=== PATIENT | female | born 1990 | race Caucasian/White ===

== ENCOUNTER 2020-08-30 11:21 | Emergency (ER) | payer OTHER, SELFPAY ==
[2020-08-30 11:22] VITALS: BP 152/77; PULSE 77; RESP 17; TEMP 36.6; O2SAT 99; BMI 22.8
--- NOTE | 2020-08-30 11:33 | HMH.EDLOEX ---
ED Disposition Clinical Impression: Metatarsal fracture Qualifiers: Encounter type: initial encounter Metatarsal bone: first Fracture type: closed Fracture alignment: nondisplaced Laterality: left Qualified Code(s): S92.315A - Nondisplaced fracture of first metatarsal bone, left foot, initial encounter for closed fracture Disposition: Xfer Other Condition on Discharge: Good Instructions: Ankle Fracture Additional Instructions: Please go straight to podiatry clinic as we discussed. You were seen on an emergency basis. It is very important that you follow up with your primary care provider and/or specialist as we discussed within 2 days. All labs and imaging were obtained and interpreted here to rule out life threatening emergencies, but your final results should be reviewed by your primary doctor at your follow up appointment. Please return to the emergency department if any of your symptoms worsen, or if they do not improve as we discussed. Referrals: Yrn Barton MD [Primary Care Provider] - - Critical Care Critical Care Time: No Attestation: On , the high probability of a clinically significant, sudden or life threatening deterioration of the following system(s) required my full and direct attention, intervention and personal management. The time I documented below is in addition to time spent performing reported procedures but includes the following listed in this critical care notation. Medical Decision Making - Medical Records Medical records reviewed: Yes: I reviewed the patient's medical records. - Nino Inquiry Pt receiving controlled substance: No Vital Signs: 08/30/20 11:22 Temperature 97.9 F Temperature Source Temporal Artery Scan Pulse Rate [Right] 77 Respiratory Rate 17 Blood Pressure [Right Arm] 152/77 H Blood Pressure Mean [Right Arm] 102 02 Sat by Pulse Oximetry 99 Orders (Tests/Meds): ORDERS Category Date Time Status Foot XR left minimum 3 views [XR foot LT min 3V] Stat Exams 08/30/20 11:38 Taken XR ankle LT 2V Stat Exams 08/30/20 11:38 Taken Medical Decision Narrative: 29-year-old female presenting with injury to left foot. Distal neurovascularly intact. X-rays obtained of the left foot and ankle demonstrating a closed first metatarsal fracture. I spoke with podiatry here who advised to have patient come straight to her clinic from the ED so I will discharge her from here and she will continue care in podiatry clinic. She is still declining pain medicine. Lower Extremity Injury HPI - General Chief Complaint: Extremity Injury, Lower Stated Complaint: wc @1100 L foot injury Time Seen by Provider: 08/30/20 11:24 Mode of Arrival: Ambulatory Limitations: No Limitations Description of Symptoms (Recalled from ER Triage Doc. by RN): Injury to the left foot at work, a piece of metal fell on her foot. - History of Present Illness HPI Narrative: 29-year-old female presenting with left foot injury whereby she dropped a piece of metal in the dorsal aspect of her foot which caused immediate localized pain and swelling. She remained ambulatory. She took some Tylenol prior to arrival and is declining any pain medicine here. No other injury sustained. - Related Data Allergies Allergy/AdvReac Type Severity Reaction Status Date / Time Penicillins [PENICILLINS] Allergy Unknown Unverified 10/23/17 14:48 Tetanus Vaccines and Toxoid Allergy Unknown Unverified 10/23/17 14:48 [TETANUS VACCINES & TOXOID] [facility] History - Hepatitis A Screen Drug use history?: No High risk sexual behaviors?: No History of sexually transmitted infection?: No Currently employed?: No Childcare worker?: No Do you have indoor plumbing?: Yes Do you have electricity?: Yes Attestation statement:: This patient has been screened for Hepatitis A risk factors. I have reviewed the patient's past medical history: Yes Amputation: No Fractures: No - Social History Smoking Status:
--- NOTE | 2020-08-30 11:38 | XR_ITS ---
PROCEDURE: XR ANKLE LT 2V CLINICAL INDICATION: dropped metal on foot Pain COMPARISON: No exams were available for comparison FINDINGS: IMPRESSION: No acute findings. Dictated by: Homer Jackson MD 08/30/2020 12:33 Homer Jackson MD in [place] 08/30/2020 12:33
--- NOTE | 2020-08-30 11:38 | XR_ITS ---
PROCEDURE: XR FOOT LT MIN 3V CLINICAL INDICATION: dropped metal on foot Posttraumatic pain COMPARISON: No exams were available for comparison FINDINGS: There are nondisplaced fractures involving the midshaft of the 1st 2nd 3rd and 4th metatarsals. There is overlying soft tissue swelling. IMPRESSION: Nondisplaced fractures midshaft 1st 2nd 3rd and 4th metatarsals Dictated by: Homer Jackson MD 08/30/2020 12:33 Homer Jackson MD in [place] 08/30/2020 12:33
--- NOTE | 2020-08-30 12:15 | PC.NURSE ---
Called dr harrell office for consult, stated she would call the dr young
--- NOTE | 2020-08-30 12:28 | PC.NURSE ---
speaking to dr harrell
[2020-08-30 12:38] VITALS: BP 118/78; PULSE 85; RESP 18; TEMP 36.6; O2SAT 99
== END 2020-08-30 12:39 | disposition other institution (70) ==
PROVIDERS: Emergency Provider Physician Assistant; PCP Family Medicine
DX: S92.315A Nondisplaced fracture of first metatarsal bone, left foot, initial encounter for closed fracture (principal); S92.325A Nondisplaced fracture of second metatarsal bone, left foot, initial encounter for closed fracture; S92.335A Nondisplaced fracture of third metatarsal bone, left foot, initial encounter for closed fracture; S92.345A Nondisplaced fracture of fourth metatarsal bone, left foot, initial encounter for closed fracture; W20.8XXA Other cause of strike by thrown, projected or falling object, initial encounter; Y92.69 Other specified industrial and construction area as the place of occurrence of the external cause; Y99.0 Civilian activity done for income or pay; F17.210 Nicotine dependence, cigarettes, uncomplicated; Z88.0 Allergy status to penicillin; Z88.7 Allergy status to serum and vaccine
CPT/HCPCS: 73600; 73630; 99282

== ENCOUNTER 2020-09-13 09:15 | Emergency (ER) | payer OTHER, SELFPAY ==
[2020-09-13 09:50] VITALS: BP 105/66; PULSE 69; RESP 16; TEMP 36.9; O2SAT 100; BMI 28.1
--- NOTE | 2020-09-13 10:33 | HMH.EDUTC ---
[facility] [place] Clinical Impression: Cellulitis Qualifiers: Site of cellulitis: extremity Site of cellulitis of extremity: lower extremity Laterality: left Qualified Code(s): L03.116 - Cellulitis of left lower limb Disposition: Home, Self-Care Condition on Discharge: Good Instructions: Minor Wounds (Alternative Therapy), Cellulitis, Clindamycin Additional Instructions: Keep wound area clean and dry Continue to elevate foot when sitting and continue to follow instructions as you was given per Dr Kohler Start antibiotics immediately Return if needed Straight to ER if any life threatening symptoms Prescriptions: clindamycin HCL [Clindamycin HCl 300mg Cap] 300 mg PO Q8 #30 cap Transmission Status: Received by [facility] #[id number] Referrals: Yrn Barton MD [Primary Care Provider] - Kandis Kohler DPM [Staff Physician] - As needed Forms: Work/School Release Time of Disposition: 10:37 Medical Decision Making - Nino Inquiry Pt receiving controlled substance: No Nino was queried for this patient: No Vital Signs: 09/13/20 09:50 09/13/20 10:57 Temperature 98.4 F 98.4 F Temperature Source Oral Pulse Rate 69 Pulse Rate [Right Brachial] 69 Respiratory Rate 16 16 Blood Pressure 105/66 L Blood Pressure [Right Arm] 105/66 L Blood Pressure Mean [Right Arm] 79 Blood Pressure Source [Right Arm] Automatic Cuff Blood Pressure Position [Right Arm] Sitting 02 Sat by Pulse Oximetry 100 Oxygen Delivery Method Room Air - Physician Consults Physician Consulted: Edita Time: 10:00 Reason -: Podiatry Eval/Care Comment/Response: Patient has been seeing Dr Kohler for fractures in her left foot, Discussed with Nereyda that foot was swollen red with drainaing blister on top of foot Spoke with Dr Kohler and advised to get culture and place patient on Clindamycin and have her keep her appointment as scheduled [facility] [place] HPI - General Stated complaint: possible left foot infection Time Seen by Provider: 09/13/20 10:00 Mode of Arrival: Ambulatory Source of Information: Patient Limitations: No Limitations Description of Symptoms (Recalled from Triage Doc. by RN): PATIENT REPORTS SHE FRACTURED HER LEFT FOOT APPROX 2 WEEKS AGO. SHE CAME IN SUNDAY TO HAVE HER DRESSING REMOVED, AND SINCE THEN A BLISTER FORMED ON TOP OF HER FOOT WHICH HAS SINCE BUSTED. REDNESS AND WARMTH NOTED TO TOP OF FOOT AND ANKLE. HEENT Symptoms (Recalled from RN notes): No Resp Symptoms (Recalled from RN notes): No Skin Symptoms (Recalled from RN notes): No MS Symptoms (Recalled from RN notes): Yes Functional Status (Recalled from RN notes): WNL - History of Present Illness Provider Complaint: Patient states that she has been under the care of Dr Kohler, States that she came in about a week ago and had wrap removed and shortly after she noticed she had a blister pop up on the top of her left foot States that she left it alone nad since she has started to have some redness and warm to the wound and she was worried that it may be infected so she come in - Related Data Previous Rx's Medication Instructions Recorded ibuprofen 800 mg tablet 800 mg PO BID #60 tab 08/30/20 clindamycin HCL [Clindamycin HCl 300 mg PO Q8 #30 cap 09/13/20 300mg Cap] Allergies Allergy/AdvReac Type Severity Reaction Status Date / Time Penicillins [PENICILLINS] Allergy Unknown Verified 08/30/20 12:58 Tetanus Vaccines and Toxoid Allergy Unknown Verified 08/30/20 12:58 [TETANUS VACCINES & TOXOID] amoxicillin Allergy Verified 09/13/20 10:12 - Worker's Comp Is this a Worker's Comp case?: No [facility] History - Hepatitis A Screen Drug use history?: No High risk sexual behaviors?: No History of sexually transmitted infection?: No Currently employed?: No Childcare worker?: No Do you have indoor plumbing?: Yes Do you have electricity?: Yes Attestation statement:: This patient has been screened for Hepatitis A risk factors. I have r
[2020-09-13 10:57] VITALS: BP 105/66; PULSE 69; RESP 16; TEMP 36.9; O2SAT 100
== END 2020-09-13 11:03 | disposition home or self-care (01) ==
PROVIDERS: Emergency Provider Nurse Practitioner; PCP Family Medicine
DX: L03.116 Cellulitis of left lower limb (principal); Z88.0 Allergy status to penicillin; Z88.7 Allergy status to serum and vaccine; S92.302D Fracture of unspecified metatarsal bone(s), left foot, subsequent encounter for fracture with routine healing
CPT/HCPCS: 99201

== ENCOUNTER → 2020-09-20 09:11 | Outpatient (CLI) | payer OTHER, SELFPAY ==
--- NOTE | 2020-09-20 09:19 | XR_ITS ---
PROCEDURE: XR FOOT WT BEARING LT 3V CLINICAL INDICATION: fracture follow up Follow-up fracture COMPARISON: CR XR FOOT LT MIN 3V from 08/30/2020 FINDINGS: Nondisplaced fractures of the 2nd 3rd and 4th midshaft metatarsals are present with minimal displacement the 1st metatarsal fracture midshaft. No significant callus formation evident IMPRESSION: No significant change in the 2nd 3rd and 4th metatarsal fractures. 1st metatarsal fracture slightly displaced with no significant callus formation. Dictated by: Homer Jackson MD 11/25/2020 15:57 Homer Jackson MD in [place] 11/25/2020 15:57
== END ==
PROVIDERS: PCP Family Medicine; Visit Provider Podiatrist
DX: S92.302D Fracture of unspecified metatarsal bone(s), left foot, subsequent encounter for fracture with routine healing (principal); T14.8XXA Other injury of unspecified body region, initial encounter
CPT/HCPCS: 73630

== ENCOUNTER → 2020-09-29 08:17 | Outpatient (CLI) | payer OTHER, SELFPAY ==
--- NOTE | 2020-09-29 08:18 | CT_ITS ---
PROCEDURE: CT FOOT LT WO CON CLINICAL HISTORY: fracture evaluation Posttraumatic pain COMPARISON: CR XR FOOT WT BEARING LT 3V from 09/20/2020 TECHNIQUE: Axial images obtained with sagittal and coronal reformats. All CT scans at the facility use one or more dose reduction, viz: automated exposure control, ma/kV adjustment per patient size (including targeted exams where dose is matched to indication, i.e. head), or iterative reconstruction technique. FINDINGS: There is a well-circumscribed lucency at the base of the posterior talar process along the lateral posterior aspect of the talus suggesting a nondisplaced fracture which appears chronic. This is best detected on series 601, image 37. There is a nondisplaced fracture involving the mid shaft of the 1st metatarsal as well as the mid shaft of the 2nd and 3rd and 4th metatarsals. There is normal relationship at the base of the 1st and 2nd metatarsals with no evidence of Lisfranc fracture. There is moderate overlying soft tissue swelling along the dorsal aspect of the foot and along the 5th metatarsal laterally. No bony erosive process evident. No obvious fluid collections although fluid collection evaluation is limited without IV contrast. IMPRESSION: 1. Nondisplaced fractures of the 1st 2nd 3rd and 4th metatarsals. 2. Well-circumscribed lucency is present through the base posterior talar process suggesting a nondisplaced fracture which appears chronic. An ununited ossification center is included in the differential diagnosis. 3. Cellulitis of the dorsal aspect of the foot Dictated by: Homer Jackson MD 10/01/2020 07:29 Homer Jackson MD in [place] 10/01/2020 07:29
== END ==
PROVIDERS: PCP Family Medicine; Visit Provider Podiatrist
DX: S92.302A Fracture of unspecified metatarsal bone(s), left foot, initial encounter for closed fracture (principal); S92.325A Nondisplaced fracture of second metatarsal bone, left foot, initial encounter for closed fracture; S92.335A Nondisplaced fracture of third metatarsal bone, left foot, initial encounter for closed fracture; S92.345A Nondisplaced fracture of fourth metatarsal bone, left foot, initial encounter for closed fracture
CPT/HCPCS: 73700

== ENCOUNTER → 2020-10-11 11:05 | Outpatient (CLI) | payer OTHER, SELFPAY ==
[2020-10-11 11:44] LABS: Chloride 100 mmol/L (98-107); Sodium 138 mmol/L (136-145)
[2020-10-11 11:45] LABS: Potassium 4.1 mmoL/L (3.5-5.1)
[2020-10-11 11:47] LABS: Alanine Aminotransferase 20 U/L (12-78); Alkaline Phosphatase 89 U/L (38-126); Aspartate Amino Transferase 26 U/L (14-36); Basophils # 0.1 K/mm3 (0-0.2); Basophils % 0.9 % (0.1-2.0); Bilirubin,Total 0.6 mg/dl (0.2-1.3); Blood Urea Nitrogen 7 mg/dl (7-17); Eosinophils # 0.1 K/mm3 (0.0-0.4); Eosinophils % 1.7 % (0.1-12.0); Estimated Glomerular Filt Rate 98 ml/min (>60); GFR (African American) 118 ML/MIN (>60); Hemoglobin 17.2 g/dL (12.2-16.2); Lymphocytes # 2.1 K/mm3 (0.7-4.5); Mean Corpuscular HGB Conc 33.1 g/dL (31.8-35.4); Mean Corpuscular Hemoglobin 31.9 pg (27.0-31.2); Mean Corpuscular Volume 96.3 fl (81-99); Mean Platelet Volume 7.9 fl (7.4-10.4); Monocytes # 0.3 K/mm3 (0.1-1.0); Monocytes % 3.9 % (1.7-9.3); Neutrophils # 5.6 K/mm3 (1.8-7.8); Neutrophils % 68.6 % (37.0-80.0); Platelet Count 349 K/mm3 (142-424); Red Cell Distribution Width 13.2 % (11.5-17.5); White Blood Count 8.2 K/mm3 (4.8-10.8)
[2020-10-11 11:48] LABS: Albumin Level 5.1 g/dl (3.5-5.0); Albumin/Globulin Ratio 1.5 (1.1-1.8); Anion Gap 12.1 mEq/L (5-15); Carbon Dioxide 30 mmol/L (22.0-30.0); Globulin 3.5 g/dL (1.3-3.2); Glucose 97 mg/dl (74-100); Total Protein,Serum 8.6 g/dl (6.3-8.2)
[2020-10-11 11:53] LABS: C-Reactive Protein 2.6 mg/L (0-4)
[2020-10-11 13:36] LABS: Erythrocyte Sedimentation Rate 20 mm/hr (0-20)
[2020-10-20 06:05] LABS: 1,25 Dihydroxy Vitamin D 49 pg/mL (.); 1,25-Dihydroxy, Vitamin D-2 <10 pg/mL (.); 1,25-Dihydroxy, Vitamin D-3 44 pg/mL (.)
== END ==
PROVIDERS: Visit Provider Podiatrist
DX: S90.822A Blister (nonthermal), left foot, initial encounter (principal); L03.116 Cellulitis of left lower limb; L08.9 Local infection of the skin and subcutaneous tissue, unspecified; S99.922D Unspecified injury of left foot, subsequent encounter
CPT/HCPCS: 36415; 80053; 82652; 85025; 85651; 86140

== ENCOUNTER → 2020-11-08 10:55 | Outpatient (CLI) | payer OTHER, SELFPAY ==
--- NOTE | 2020-11-08 11:13 | XR_ITS ---
PROCEDURE: XR FOOT WT BEARING LT 3V CLINICAL INDICATION: Fracture follow up Follow-up fracture COMPARISON: CR XR FOOT LT MIN 3V from 08/30/2020 CR XR FOOT WT BEARING LT 3V from 09/20/2020 FINDINGS: Nondisplaced fractures are once again noted involving the 1st 2nd 3rd and 4th mid shaft metatarsals. Callus formation is present at the 2nd 3rd and 4th metatarsal fracture but not noted at the 1st metatarsal fracture. There remains good alignment. IMPRESSION: Nondisplaced 1st 2nd 3rd and 4th metatarsal fractures as described above. Dictated by: Homer Jackson MD 11/08/2020 11:43 Homer Jackson MD in [facility] 11/08/2020 11:43
== END ==
PROVIDERS: PCP Family Medicine; Visit Provider Podiatrist
DX: T14.8XXA Other injury of unspecified body region, initial encounter (principal)
CPT/HCPCS: 73630

== ENCOUNTER 2020-12-09 09:00 | Outpatient (RCR) | payer OTHER, SELFPAY ==
--- NOTE | 2020-11-16 10:42 | HMH.PTOPEV ---
PT Outpatient Evaluation Rehab PT Outpatient Evaluation Start: 11/16/20 10:27 Freq: Status: Active Protocol: Document 11/16/20 10:27 MORGAN (Rec: 11/16/20 10:42 MORGAN [id number]) Electronically Signed By Jeremie Lees, PT 11/16/20 10:27 Outpatient Therapy Subjective History Subjective History Patient is a 29 year old female presenting to outpatient PT with reports of L foot/ankle stiffness S/P L 1st/2nd/3rd/4th metatarsal fracture. Initial injury occurred 08/30/20 (12 weeks S/ P). Initial injury occurred after patient dropped a piece of sheet metal on her foot at work. This is a workmans comp case. No other comorbidities to report. Chief Complaint Stiff,Swelling,Weakness Symptom Type Other Symptoms Relieved By Rest/Positioning Symptoms Aggravated By Standing,Physical Activity, Walking Prior Functional Limitations None Current Functional Limitations Standing,Walking,Stairs Symptom Description Intermittent Level of pain today (0-10) 0 Pain scale - at its best (0-10) 0 Pain scale - at its worst (0-10) 3 Ankle/Foot Eval Gait Observation General Gait Pattern Observation Antalgic Gait,Decrease Weight Bear (L) Palpation Tenderness left Ankle/Foot Palpation Findings Tenderness Ankle/Foot Palpation Overall Comment 1st MT 2/4 ROM Ankle/Foot Dorsiflexion w/Knee Extended 4 Active Range Motion (degrees) Ankle/Foot Dorsiflexion w/Knee Extended 7 Passive Range (degrees) Ankle/Foot Plantar Flexion Active Range 48 of Motion (degrees) Ankle/Foot Plantar Flexion Passive Range 52 of Motion (degrees) Ankle/Foot Eversion Active Range of 9 Motion (degrees) Ankle/Foot Eversion Passive Range of 12 Motion (degrees) Ankle/Foot Inversion Active Range of 33 Motion (degrees) Ankle/Foot Inversion Passive Range of WNL Motion (degrees) Great Toe ROM Reason Not Measured Within Functional Limits Accessory Movements Toe Accessory Movement that Elicit MTP Dorsal [place],MTP Plantar Symptoms [place] MMT left Ankle Dorsiflexion Strength Grade 5 Normal Ankle Plantarflexion Strength Grade 5 Normal Foot Eversion Strength Grade 4- Good- Foot Inversion Strength Grade 4- Good- Special Tests Ankle Anterior Drawer Test Negative Left Ankle Eversion Test Negative Left
== END 2020-12-09 09:05 | disposition home or self-care (01) ==
LOC: PT 09:00
PROVIDERS: Visit Provider Podiatrist
DX: S92.302A Fracture of unspecified metatarsal bone(s), left foot, initial encounter for closed fracture (principal); S92.325A Nondisplaced fracture of second metatarsal bone, left foot, initial encounter for closed fracture; S92.335A Nondisplaced fracture of third metatarsal bone, left foot, initial encounter for closed fracture; S92.345A Nondisplaced fracture of fourth metatarsal bone, left foot, initial encounter for closed fracture
CPT/HCPCS: 97110; 97112; 97163; 97760

== ENCOUNTER → 2020-12-13 09:46 | Outpatient (CLI) | payer OTHER, SELFPAY ==
--- NOTE | 2020-12-13 09:56 | XR_ITS ---
PROCEDURE: XR FOOT WT BEARING LT 3V CLINICAL INDICATION: fracture follow up Follow-up fracture COMPARISON: CR XR FOOT LT MIN 3V from 08/30/2020 CR XR FOOT WT BEARING LT 3V from 09/20/2020 CR XR FOOT WT BEARING LT 3V from 11/08/2020 FINDINGS: There are healing fractures involving the midshaft of the 1st 2nd 3rd and 4th metatarsals. The fracture lines are somewhat less apparent at the 2nd 3rd and 4th metatarsals but does not appear significantly changed at the midshaft of the 1st metatarsal. There may be some developing callus formation laterally at the 1st metatarsal fracture. Fractures remain nondisplaced. IMPRESSION: Healing nondisplaced fractures 1st 2nd 3rd and 4th metatarsals with good alignment Dictated by: Homer Jackson MD 12/13/2020 11:11 Homer Jackson MD in [place] 12/13/2020 11:11
== END ==
PROVIDERS: PCP Family Medicine; Visit Provider Podiatrist
DX: S92.325A Nondisplaced fracture of second metatarsal bone, left foot, initial encounter for closed fracture (principal); S92.335A Nondisplaced fracture of third metatarsal bone, left foot, initial encounter for closed fracture; S92.345A Nondisplaced fracture of fourth metatarsal bone, left foot, initial encounter for closed fracture
CPT/HCPCS: 73630

== ENCOUNTER → 2021-01-24 10:42 | Outpatient (CLI) | payer OTHER, SELFPAY ==
--- NOTE | 2021-01-24 10:51 | XR_ITS ---
PROCEDURE: XR FOOT WT BEARING LT 3V CLINICAL INDICATION: foot pain Follow-up fracture COMPARISON: CR XR FOOT LT MIN 3V from 08/30/2020 CR XR FOOT WT BEARING LT 3V from 09/20/2020 CR XR FOOT WT BEARING LT 3V from 11/08/2020 CR XR FOOT WT BEARING LT 3V from 12/13/2020 FINDINGS: Healing fractures are present involving the midshaft of the 1st 2nd 3rd and 4th metatarsals. There is good alignment. Fracture lines are still visible although somewhat less apparent. The joint spaces are well-preserved. No significant degenerative/arthritic changes. No erosive changes evident. Other findings:None. IMPRESSION: Healing nondisplaced fractures of the 1st, 2nd, 3rd and 4th metatarsals Dictated by: Homer Jackson MD 01/24/2021 13:51 Homer Jackson MD in [facility] 01/24/2021 13:51
== END ==
PROVIDERS: PCP Family Medicine; Visit Provider Podiatrist
DX: S92.302D Fracture of unspecified metatarsal bone(s), left foot, subsequent encounter for fracture with routine healing (principal); T14.8XXA Other injury of unspecified body region, initial encounter
CPT/HCPCS: 73630

== ENCOUNTER → 2021-05-30 13:27 | Outpatient (CLI) | payer OTHER, SELFPAY ==
--- NOTE | 2021-05-30 13:30 | XR_ITS ---
PROCEDURE INFORMATION: Exam: XR Left Foot Complete; Alignment Exam date and time: 05/30/2021 1:30 PM Age: 30 years old Clinical indication: Patient HX: Left foot pain TECHNIQUE: Imaging protocol: XR Left foot. Views: 3 or more views. COMPARISON: CR XR FOOT WT BEARING LT 3V 01/24/2021 10:52 AM FINDINGS: Bones/joints: Healed fractures of the 1st through 4th metatarsals. No acute fracture or dislocation. No significant degenerative changes. Soft tissues: Normal. IMPRESSION: Multiple healed metatarsal fractures.
== END ==
PROVIDERS: PCP Family Medicine; Visit Provider Podiatrist
DX: T14.8XXA Other injury of unspecified body region, initial encounter (principal); S92.302D Fracture of unspecified metatarsal bone(s), left foot, subsequent encounter for fracture with routine healing
CPT/HCPCS: 73630

== ENCOUNTER 2021-06-07 10:10 | Emergency (ER) | payer OTHER, SELFPAY ==
[2021-06-07 10:11] VITALS: BP 128/84; PULSE 64; RESP 20; TEMP 36.9; O2SAT 99; BMI 29.9
[2021-06-07 11:03] LABS: UTC Strep Screen (Rapid) Negative (Negative)
--- NOTE | 2021-06-07 11:06 | HMH.EDUTC ---
[facility] [place] Disposition Clinical Impression: URI (upper respiratory infection) Qualifiers: URI type: unspecified URI Qualified Code(s): J06.9 - Acute upper respiratory infection, unspecified Disposition: Home, Self-Care Condition on Discharge: Good Instructions: Sore Throat, DI for Cough -- Adult Additional Instructions: *Monitor Temp, Over the counter Motrin or Tylenol as directed/as needed Tylenol every 4 hours and Motrin every 6 hours (as long as your family doctor has told you that you can take it) for fever or pain. and straight to ER if unable to lower temp less than 101.0 after medication given *Warm salt water gargles may help to soothe the throat *Throat Lozenges *Warm fluids like tea with honey may help to soothe the throat *Sleep elevated *Humidifier/Vaporizer *Flonase 2 sprays in each nostril daily but be aware that it may take 2-3 days before you notice improvement Your throat swab was sent for culture. Those results are typically sent to your primary care. Be sure to follow up in 2-3 days with your family doctor/primary care physician if no improvement so they can review those result and treat if necessary. If you don?t have a primary care doctor, I recommend you get one but in the mean time, you will have to return to a walk in clinic Follow up IMMEDIATELY for new or worsening symptoms or no Noticeable improvement over the next 48-72 hours. 911 for difficulty breathing or swallowing Prescriptions: Azithromycin [Z-Real 250mg Tab] 250 mg PO DIRECTED #6 tab Transmission Status: Pending to No [facility] #[id number] Referrals: Yrn Barton MD [Primary Care Provider] - As needed Forms: Work/School Release Time of Disposition: 11:10 Medical Decision Making - Nino Inquiry Pt receiving controlled substance: No Nino was queried for this patient: No Vital Signs: 06/07/21 10:11 Temperature 98.5 F Temperature Source Oral Pulse Rate [Apical] 64 Respiratory Rate 20 Blood Pressure [Right Arm] 128/84 Blood Pressure Mean [Right Arm] 98 Blood Pressure Source [Right Arm] Automatic Cuff Blood Pressure Position [Right Arm] Sitting 02 Sat by Pulse Oximetry 99 Oxygen Delivery Method Room Air - Lab Data Lab results reviewed: Yes: I reviewed the patient's lab results. Lab Results 06/07/21 10:55: Strep Scn Rapid Clinic Negative Orders (Tests/Meds): ORDERS Category Date Time Status Strep Screen Confirmation Stat Micro 06/07/21 10:55 Received [facility] [place] HPI - General Stated complaint: sore throat, cough Time Seen by Provider: 06/07/21 11:06 Mode of Arrival: Ambulatory Source of Information: Patient Limitations: No Limitations Description of Symptoms (Recalled from Triage Doc. by RN): 128/84 HEENT Symptoms (Recalled from RN notes): Yes Resp Symptoms (Recalled from RN notes): No Skin Symptoms (Recalled from RN notes): No MS Symptoms (Recalled from RN notes): No Functional Status (Recalled from RN notes): na - History of Present Illness Provider Complaint: Patient state that she has been having sore throat and cough States that her daughter has strep throat and she feels like she may have it now too State that her throat feels raw and scratchy and hurts when she swallows - Related Data Previous Rx's Medication Instructions Recorded Azithromycin [Z-Real 250mg Tab] 250 mg PO DIRECTED #6 tab 06/07/21 Allergies Allergy/AdvReac Type Severity Reaction Status Date / Time Penicillins [PENICILLINS] Allergy Unknown Verified 05/30/21 14:05 Tetanus Vaccines and Toxoid Allergy Unknown Verified 05/30/21 14:05 [TETANUS VACCINES & TOXOID] amoxicillin Allergy Verified 05/30/21 14:05 - Worker's Comp Is this a Worker's Comp case?: No [facility] History - Hepatitis A Screen Drug use history?: No High risk sexual behaviors?: No History of sexually transmitted infection?: No Currently employed?: No Childcare worker?: No Do you have indoor plumbing?: Yes Do you have
[2021-06-07 11:16] VITALS: BP 128/84; PULSE 64; RESP 20; TEMP 36.9; O2SAT 99
== END 2021-06-07 11:17 | disposition home or self-care (01) ==
PROVIDERS: Emergency Provider Nurse Practitioner; PCP Family Medicine
DX: J06.9 Acute upper respiratory infection, unspecified (principal); R01.1 Cardiac murmur, unspecified; Z88.0 Allergy status to penicillin; Z88.7 Allergy status to serum and vaccine
CPT/HCPCS: 87880; 99202; G0463

== ENCOUNTER → 2021-07-21 10:29 | Outpatient (CLI) | payer OTHER, SELFPAY ==
[2021-07-21 11:38] LABS: HCG,Quantitative 13507 mIU/ml (0-5.42)
== END ==
PROVIDERS: Visit Provider Nurse Practitioner Obstetrics & Gynecology
DX: N92.6 Irregular menstruation, unspecified (principal)
CPT/HCPCS: 36415; 84702

== ENCOUNTER → 2021-08-18 11:54 | Outpatient (CLI) | payer OTHER, SELFPAY ==
[2021-08-18 12:28] LABS: Basophils # 0.1 K/mm3 (0-0.2); Basophils % 0.5 % (0.1-2.0); Eosinophils # 0.1 K/mm3 (0.0-0.4); Eosinophils % 0.8 % (0.1-12.0); Hematocrit 38.7 % (37.0-47.0); Hemoglobin 12.7 g/dL (12.2-16.2); Lymphocytes # 2.1 K/mm3 (0.7-4.5); Lymphocytes % 21.7 % (10-50); Mean Corpuscular HGB Conc 32.8 g/dL (31.8-35.4); Mean Corpuscular Hemoglobin 31.2 pg (27.0-31.2); Mean Corpuscular Volume 94.9 fl (81-99); Monocytes # 0.4 K/mm3 (0.1-1.0); Monocytes % 3.8 % (1.7-9.3); Neutrophils % 73.3 % (37.0-80.0); Platelet Count 342 K/mm3 (142-424); Red Blood Count 4.08 M/mm3 (4.20-5.40); White Blood Count 9.6 K/mm3 (4.8-10.8)
[2021-08-19 08:19] LABS: HIV Screen 4th Generation wRfx Non Reactive (Non Reactive)
[2021-08-19 09:29] LABS: Rubella Antibodies, IgG 2.78 index (Immune >0.99)
[2021-08-19 11:15] LABS: Hepatitis B Surface Antigen Negative (Negative); Hepatitis C Antibody 0.1 s/co ratio (0.0-0.9); Rapid Plasma Reagin Ab Titer Non Reactive (NonRea<1:1)
== END ==
PROVIDERS: Visit Provider Nurse Practitioner Obstetrics & Gynecology
DX: Z34.90 Encounter for supervision of normal pregnancy, unspecified, unspecified trimester (principal)
CPT/HCPCS: 36415; 85025; 86592; 86703; 86762; 86850; 87340; 87380; G0432

== ENCOUNTER → 2021-08-26 13:13 | Outpatient (CLI) | payer OTHER, SELFPAY ==
--- NOTE | 2021-08-26 13:14 | US_ITS ---
PROCEDURE: US OB <= 14 WEEKS FETUS CLINICAL INDICATION: for dates COMPARISON: No exams were available for comparison FINDINGS: An intrauterine gestational sac is present with a pole with a crown-rump length of 4.32cm correlating to gestational age of 11weeks 2days. heart tones are present with an FHR of 167bpm. Yolk sac is noted. Placenta is forming posteriorly. IMPRESSION: Live IUP at 11 weeks 2 days Estimated due date by Ultrasound is 03/15/2022 Dictated by: Homer Jackson MD 08/26/2021 14:58 Homer Jackson MD in [facility] 08/26/2021 14:58
== END ==
PROVIDERS: PCP Family Medicine; Visit Provider Nurse Practitioner Obstetrics & Gynecology
DX: Z34.90 Encounter for supervision of normal pregnancy, unspecified, unspecified trimester (principal)
CPT/HCPCS: 76801

== ENCOUNTER → 2021-10-25 14:54 | Outpatient (CLI) | payer OTHER, SELFPAY ==
--- NOTE | 2021-10-25 14:54 | US_ITS ---
PROCEDURE: US OB /MATERNAL DETAIL CLINICAL INDICATION: 20 weeks gestation COMPARISON: US US OB <= 14 WEEKS FETUS from 08/26/2021 FINDINGS: There is a single live fetus present in breech presentation. The cervix is closed measuring 3 cm. The placenta is posterior and grade 1. No previa or abruption demonstrated. Complete survey performed and was unremarkable on the submitted images as in PACS. No discrete anomalies identified on survey imaging by technologist. Active fetus. Three-vessel cord with satisfactory umbilical cord insertion. 4- chamber heart noted. Survey of brain & ventricles Unremarkable. Face and neck survey unremarkable. Diaphragm and chest views unremarkable. Abdomen: Both kidneys noted and unremarkable. Stomach noted and satisfactory. Spine: Survey of the spine satisfactory with no anomalies identified nor imaged. Both arms and legs noted. Amniotic Fluid: Adequate. Maternal adnexa: No significant findings. Measurements: Average ultrasound age 20weeks. Gestational Age 20weeks Estimated due date by ultrasound age 0503/14/2022. Estimated weight 330g BPD = 20weeks OFD = 19weeks 4days HC = 19weeks AC = 20weeks 3days FL = 20weeks 1day Growth Percentile= 33% Heart Rate = 150bpm Cerebellum = 20weeks 1day Humerus = 20weeks HC/AC is 1.07 CI is 0.81 FL/BPD is 0.7 FL/AC is 0.21 IMPRESSION: Live IUP in breech presentation with an average ultrasound age of 20 weeks 0 days. No obvious anomalies. Please see above for detail. Dictated by: Homer Jackson MD 10/25/2021 17:51 Homer Jackson MD in [facility] 10/25/2021 17:51
== END ==
PROVIDERS: PCP Family Medicine; Visit Provider Nurse Practitioner Obstetrics & Gynecology
DX: Z36.0 Encounter for antenatal screening for chromosomal anomalies (principal); Z3A.20 20 weeks gestation of pregnancy
CPT/HCPCS: 76811

== ENCOUNTER → 2021-12-23 06:57 | Outpatient (CLI) | payer BC, SELFPAY ==
[2021-12-23 07:36] LABS: Glucose,Fasting 82 mg/dl (74-100)
[2021-12-23 08:56] LABS: Glucose 1 Hour 127 mg/dL (74-100)
== END ==
PROVIDERS: Visit Provider Nurse Practitioner Obstetrics & Gynecology
DX: Z34.90 Encounter for supervision of normal pregnancy, unspecified, unspecified trimester (principal)
CPT/HCPCS: 36415; 82951

== ENCOUNTER → 2022-01-25 10:00 | Outpatient (CLI) | payer BC, SELFPAY ==
--- NOTE | 2022-01-25 10:13 | US_ITS ---
FINAL REPORT CLINICAL HISTORY: US OB BPP and Growth for SGA,measuring small FINDINGS: There is a single live intrauterine gestation. Presentation is cephalic. Placenta is posterior. movements and practice breathing is seen. Heart rate is 142 beats per minute. AMNIOTIC FLUID: Appropriate amount. MEASUREMENTS: ULTRASOUND AGE: 32 weeks 2 days. GESTATION AGE: 33 weeks 0 days. ESTIMATED WEIGHT: 1877 g GROWTH PERCENTILE: 15% BPD: 8.2 cm corresponding with 33 weeks 0 days. OFD: 10.5 cm corresponding with 33 weeks 2 days. HC: 29.6 cm corresponding with 32 weeks 6 days. AC: 28.5 cm corresponding with 32 weeks 4 days. FL: 5.9 cm corresponding with 30 weeks 4 days. HC/AC: 1.04 CI: 78% FL/BPD: 72% FL/AC: 21% BIOPHYSICAL PROFILE: Breathin Movement: 2 Tone: 2 Fluid volume: 2 Total: 06/12 IMPRESSION: Single living IUP with an ultrasound age of 32 weeks 2 days. BPP: 06/12 Reviewed, Interpreted and Dictated by Bonifacio Nelson MD Transcribed by Tonie Stubbs Authenticated by Bonifacio Nelson MD on 01/25/2022 02:03:54 PM [facility]
== END ==
PROVIDERS: PCP Family Medicine; Visit Provider Nurse Practitioner Obstetrics & Gynecology
DX: O36.5990 Maternal care for other known or suspected poor fetal growth, unspecified trimester, not applicable or unspecified (principal)
CPT/HCPCS: 76816; 76819

== ENCOUNTER → 2022-02-20 13:01 | Outpatient (CLI) | payer BC, SELFPAY | PROVIDERS: Visit Provider Nurse Practitioner Obstetrics & Gynecology | DX: Z34.90 Encounter for supervision of normal pregnancy, unspecified, unspecified trimester (principal) | CPT/HCPCS: 86403 ==

== ENCOUNTER 2022-03-13 15:56 | Inpatient (IN) | payer BC, SELFPAY ==
[2022-03-13 16:09] VITALS: BMI 32.1
[2022-03-13 16:30] VITALS: BP 115/58; PULSE 62; RESP 18; TEMP 36.8; O2SAT 95; BMI 31.9
[2022-03-13 16:54] LABS: Microscopic, Urine URINE MICROSCOPIC (MICROSCOPIC)
[2022-03-13 16:58] LABS: Coronavirus 19, PCR Not Detected (NotDetected); Influenza A, PCR Not Detected (NotDetected); Influenza B, PCR Not Detected (NotDetected)
[2022-03-13 17:06] LABS: Basophils # 0.1 K/mm3 (0-0.2); Basophils % 0.4 % (0.1-2.0); Eosinophils % 0.1 % (0.1-12.0); Hematocrit 34.3 % (37.0-47.0); Hemoglobin 11.7 g/dL (12.2-16.2); Lymphocytes # 1.6 K/mm3 (0.7-4.5); Lymphocytes % 10.5 % (10-50); Mean Corpuscular HGB Conc 34.2 g/dL (31.8-35.4); Mean Corpuscular Hemoglobin 32.3 pg (27.0-31.2); Mean Corpuscular Volume 94.3 fl (81-99); Mean Platelet Volume 8.9 fl (7.4-10.4); Monocytes # 0.5 K/mm3 (0.1-1.0); Monocytes % 3.3 % (1.7-9.3); Neutrophils # 13.4 K/mm3 (1.8-7.8); Neutrophils % 85.7 % (37.0-80.0); Platelet Count 349 K/mm3 (142-424); Red Blood Count 3.63 M/mm3 (4.20-5.40); White Blood Count 15.7 K/mm3 (4.8-10.8)
[2022-03-13 17:07] LABS: Appearance,Urine CLEAR (Clear); Bilirubin,Urine Negative (Negative); Blood, Urine Negative (Negative); Color,Urine YELLOW (Yellow); Glucose,Urine (UA) Negative (Negative); Ketones,Urine 1+ (Negative); Leukocyte Esterase,Urine Negative (Negative); Nitrate,Urine Negative (Negative); PH,Urine 6.5 (5.0-8.5); Protein,Urine Negative (Negative); Urobilinogen,Urine 0.2 EU/dl (0.2)
[2022-03-13 17:08] LABS: MANUAL DIFFERENTIAL MANUAL DIFFERENTIAL (MANUAL DIFF)
[2022-03-13 17:09] LABS: Barbiturates Screen,Urine Negative ng/ml (<200)
[2022-03-13 17:10] LABS: Benzodiazepines Screen,Urine Negative ng/ml (<200)
[2022-03-13 17:11] LABS: Amphetamine/Metha Screen,Urine Negative ng/ml (<1000); Cannabinoid Screen,Urine Negative ng/ml (<50)
[2022-03-13 17:12] LABS: Cocaine Screen,Urine Negative ng/ml (<300); Methadone Screen,Urine Negative ng/ml (<300)
[2022-03-13 17:13] LABS: Opiate Screen,Urine Negative ng/ml (<300)
[2022-03-13 17:14] LABS: Phencyclidine Screen,Urine Negative ng/ml (<25)
[2022-03-13 17:19] LABS: Hypochromasia 1+; Lymphocytes % 15 % (10-50); Monocytes % 5 % (2-9); Neutrophils % 80 % (42-76); Platelet Estimate Normal; Total Cells Counted 100
[2022-03-13 17:36] LABS: Bacteria,Urine Trace /lpf; Squamous Epithelial Cell,Urine Occasional #/hpf (0-5)
--- NOTE | 2022-03-13 18:01 | HMH.OBAPHP ---
OB - H&P: HPI Antepartum - History of Present Illness Chief complaint: Term , oligohydramnios History of present illness: She is a 31-year-old 2 para 1 at 40 weeks and 1 day. She was seen in my office earlier today and an ultrasound showed that her amniotic fluid index was 4.69. As result of this she is being induced this evening. - History of Present Criteria for establishing EDC:: LMP confirmed by 1st trimester US care: good care Ultrasounds: normal 1st trimester US, normal mid trimester US Obstetrical complications: other Medical complications: none (To know what her blood type is) - Labs Blood type: O (+) positive (an 77 yeah) Rubella: immune RPR/VDRL: nonreactive GBS status: positive (and she is GBS positive right) HBsAG: negative [facility] History I have reviewed the patient's past medical history: Yes (Thank you) Medical History: Reports:: Heart Murmur *Have you ever received a pneumonia vaccine?: No *Have you received a flu vaccine this season?: No Other Surgeries: Yes: No Previous Surgery. No: Amputation: No Fractures: No - *Social History Smoking Status: Current every day smoker Tobacco Type: cigarettes # Packs/Day (cigarettes): 1 Alcohol Intake: current Alcohol Intake Frequency:: holidays/special occasions only Substance Use Type: denies use *Occupational Status:: employed *Travel in the last 8 weeks: None Family Hx:: Cancer Para: 1 Review of Systems - Review of Systems Review of systems:: pertinent systems reviewed and negative unless documented below Meds Home Medications Medication Instructions Recorded Confirmed Type prenat.vits,inocente,szs-[id number]-[id number] 1 tab PO DAILY 08/18/21 03/13/22 History ferrous sulfate 325 mg (65 mg 325 mg PO DAILY #30 tab 10/12/21 03/13/22 Rx iron) tablet Allergies Allergy/AdvReac Type Severity Reaction Status Date / Time Penicillins [PENICILLINS] Allergy Unknown Verified 03/13/22 10:05 Tetanus Vaccines and Toxoid Allergy Unknown Verified 03/13/22 10:05 [TETANUS VACCINES & TOXOID] amoxicillin Allergy Verified 03/13/22 10:05 OB - H&P: Exam - Physical Exam Vital signs: Temp Pulse Resp BP Pulse Ox 98.2 F 62 18 115/58 L 95 03/13/22 16:30 05/09/22 16:30 03/13/22 16:30 03/13/22 16:30 03/13/22 16:30 - Constitutional no acute distress - Routine HEENT Exam Head: Present: normocephalic Eye: Present: EOMI, PERRL ENT: Present: mucous membranes moist - Routine Neck Exam Present: supple, full ROM - Routine Respiratory Exam Absent: accessory muscle use (good air entry bilaterally), respiratory distress, wheezes, crackles - Routine Cardiovascular Exam Present: RRR. Absent: murmur - Routine Abdominal Exam Present: soft, normoactive bowel sounds. Absent: tenderness, distended, guarding - Routine Rectal Exam Patient deferred: visual exam, digital exam - Routine Exam Patient deferred: external exam, groin exam, perineal exam - Routine Extremities Exam Present: full ROM. Absent: cyanosis, edema - Routine Skin Exam Present: intact. Absent: cyanosis - Routine Neurological Exam Present: alert, oriented X3 - Routine Psychiatric Exam Present: normal affect OB - Results - Labs Labs: Short CBC 03/13/22 Range/Units 16:30 WBC 15.7 H (4.8-10.8) K/mm3 Hgb 11.7 L (12.2-16.2) g/dL Hct 34.3 L (37.0-47.0) % Plt Count 349 (142-424) K/mm3 Urine 03/13/22 Range/Units 16:30 Urine Color Yellow (Yellow) Urine Appearance Clear (Clear) Urine pH 6.5 (5.0-8.5) Ur Specific [place] 1.020 (1.005-1.030) Urine Protein Negative (Negative) Urine Glucose (UA) Negative (Negative) OB - A/P Antepartum (1) Term delivered Status: Acute (2) Oligohydramnios antepartum Status: Acute - Additional Plan Planning to breastfeed?: Yes Plan: induction Additional Information:: I inserted Cervidil in the vagin
[2022-03-13 20:00] VITALS: BP 114/61; PULSE 54; RESP 18; TEMP 36.6; O2SAT 97
[2022-03-14 04:00] VITALS: BP 115/71; PULSE 58; RESP 18; TEMP 36.6; O2SAT 98
[2022-03-14 07:30] VITALS: BP 115/67; PULSE 49; RESP 17; TEMP 36.9; O2SAT 99
--- NOTE | 2022-03-14 10:19 | HMH.LABNOT ---
Labor Note - Subjective: Date: 03/14/22 Time: 09:00 regular contraction - Objective: NST:: Reactive Contractions:: every 2-3 minutes Cervical Dilation:: 2 Effacement:: 75% Station: 0 Membranes: artificially ruptured Comment:: I ruptured her membranes and there was clear fluid - Fetus: Monitoring?: Yes monitoring type:: External - Assessment: Labor progressing?: Yes Cephalopelvic disproportion?: No Patient Problems: All Active Problems Term delivered (Acute) Oligohydramnios antepartum (Acute) (Acute) Cellulitis (Acute) URI (upper respiratory infection) (Acute) Metatarsal fracture (Acute) Closed nondisplaced fracture of fourth metatarsal bone of left foot (Acute) Closed nondisplaced fracture of third metatarsal bone of left foot (Acute) Closed nondisplaced fracture of second metatarsal bone of left foot (Acute) Multiple closed fractures of metatarsal bone of left foot (Acute) Injury of left foot (Acute) Influenza due to influenza virus, type B (Acute) Fever (Acute) Body aches (Acute) Cough (Acute) Sinusitis (Acute) - Plan: Anesthesia for epidural?: No Continue to labor down?: Yes Plan for ?: No Continue to monitor?: Yes Start pushing?: No Comment:: She is having regular contractions and the nonstress test is reactive. I ruptured her membranes and there was clear fluid.
[2022-03-14 11:08] VITALS: BP 122/80; PULSE 57; RESP 17; TEMP 36.7; O2SAT 99
--- NOTE | 2022-03-14 12:33 | HMH.LABNOT ---
Labor Note - Subjective: Date: 03/14/22 Time: 12:33 regular contraction - Objective: NST:: Reactive Contractions:: every 2-3 minutes Cervical Dilation:: 3-4 Effacement:: 80% Station: 0 Membranes: artificially ruptured - Fetus: Monitoring?: Yes monitoring type:: External - Assessment: Labor progressing?: Yes Cephalopelvic disproportion?: No Patient Problems: All Active Problems Term delivered (Acute) Oligohydramnios antepartum (Acute) (Acute) Cellulitis (Acute) URI (upper respiratory infection) (Acute) Metatarsal fracture (Acute) Closed nondisplaced fracture of fourth metatarsal bone of left foot (Acute) Closed nondisplaced fracture of third metatarsal bone of left foot (Acute) Closed nondisplaced fracture of second metatarsal bone of left foot (Acute) Multiple closed fractures of metatarsal bone of left foot (Acute) Injury of left foot (Acute) Influenza due to influenza virus, type B (Acute) Fever (Acute) Body aches (Acute) Cough (Acute) Sinusitis (Acute) - Plan: Anesthesia for epidural?: No Continue to labor down?: Yes Plan for ?: No Continue to monitor?: Yes Start pushing?: No
[2022-03-14 15:41] VITALS: BP 127/80; PULSE 57; RESP 17; TEMP 36.8; O2SAT 99
[2022-03-14 20:00] VITALS: BP 120/69; PULSE 56; RESP 17; TEMP 36.6; O2SAT 97
[2022-03-15 03:32] VITALS: BP 115/79; PULSE 54; RESP 16; TEMP 36.6; O2SAT 97
[2022-03-15 06:57] LABS: Hematocrit 33.9 % (37.0-47.0); Hemoglobin 11.6 g/dL (12.2-16.2)
[2022-03-15 07:49] VITALS: BP 103/63; PULSE 59; RESP 17; TEMP 36.5; O2SAT 99
--- NOTE | 2022-03-15 09:31 | P.DS_ITS ---
General - General Admission date:: 03/13/22 Discharge date: 03/15/22 HPI - History of Present Illness History of present illness: She is a 31-year-old 2 para 1 at 40 weeks gestational age who was brought in for induction of labor at term. She has oligohydramnios. Hospital Course Hospital Course: She had Cervidil placed in the evening of March 13 and was observed overnight. On the morning of March 14 she was started on IV oxytocin had her membranes ruptured. She progressed to full dilation and delivered spontaneously a liveborn male child at 1:47 PM in the afternoon of March 14, 2022. Baby was a liveborn male child weighing 6 pounds 6 ounces with Apgars of 8 at 1 minute and 9 at 5 minutes. She had a small perineal laceration that was repaired with a single aqudsw-am-rh ght 3-0 Vicryl Rapide suture. She has O+ blood, she is rubella immune and was group B streptococcus positive. She did receive IV antibiotics while in labor. Her well service pump equipment operator is Dr. Stauffer. She will be discharged home today to follow-up with me in approximately 2 weeks time. She was given the usual instructions with respect to limiting her activity, driving and sexual activity. She will continue with her vitamins and iron. She will take [id number] analgesics as necessary. Her condition on discharge is stable and improved. Rhogam Administration: Not Indicated Objective Vital signs: Temp Pulse Resp BP Pulse Ox 97.7 F 59 L 17 103/63 L 99 03/15/22 07:49 03/15/22 07:49 03/15/22 07:49 03/15/22 07:49 03/15/22 07:49 no acute distress - *Routine HEENT Exam Head: Present: normocephalic Eye: Present: EOMI, PERRL ENT: Present: mucous membranes moist Results Labs on day of discharge: Labs from last 24 hours 03/15/22 03/14/22 03/14/22 06:34 22:21 16:41 Hgb 11.6 L Hct 33.9 L POC Glucose 81 77 DS: Diagnosis - Discharge Diagnosis (1) Term delivered Status: Acute (2) Oligohydramnios antepartum Status: Acute Discharge Plan - Patient Discharge Instructions ACTIVITY: No heavy lifting DIET: continue same diet Additional Instructions: Nothing in the vagina for 6 weeks No tub baths Drink plenty of fluids Patient Instructions: Depression, Hemorrhage, DI for Labor and Delivery, Vaginal , DI for Pre-eclampsia, [facility] Post Discharge Instructions, Preventing the Spread of Coronavirus Discharge Instructions - Follow up Plan Follow up with: Giovanni Correa MD [Staff Physician] - 03/28/22 1:30 pm Disposition: Home, Self-Care Condition at discharge:: Stable Home Medications: Home Medications Medication Instructions Recorded Confirmed Type prenat.vits,inocente,xtj-wkux-ohdux 1 tab PO DAILY 08/18/21 03/13/22 History Ferrous Sulfate 325 mg PO DAILY 03/13/22 03/13/22 History Prescriptions/Medication Reconciliation: Continued prenat.vits,inocente,kch-[id number]-snawz 1 tab PO DAILY Ferrous Sulfate 325 mg PO DAILY - Problem Reconciliation Problems Reviewed?: Yes
--- NOTE | 2022-03-15 11:25 | HMH.DN ---
- Delivery Note Delivery Date:: 03/14/22 Delivery Time:: 13:47 Anesthesia Type: None Was labor medically induced?: Yes Induction method: per misoprostol protocol Gestational age (weeks): 40 Infant delivered prior to 39 weeks?: No Justification for early elective delivery:: Oligohydraminos Infant Gender: Male at 1 minute: 8 at 5 minutes: 9 Delivery Procedure:: She is a 31-year-old 2 para 1 at 40 weeks gestational age. She was seen in my office and had oligohydramnios. As result of that she was admitted for induction of labor. She had Cervidil inserted on the evening of March 13, 2022. On March 14, 2022 she is was started on IV oxytocin and had her membranes ruptured. She progressed to full dilation and delivered spontaneously a liveborn male child at 1:47 PM in the afternoon of March 14, 2022. The baby weighed 6 pounds 6 ounces and had Apgars of 8 at 1 minute and 9 at 5 minutes. On delivery the head the anterior shoulder then easily delivered followed by the rest the infant's body atraumatically. The oropharynx and nasopharynx were bulb suction. The baby was vigorous and we allowed the cord to continue to pulsate for approximately 1 minute. The cord was then doubly clamped and cut and the infant was placed on the mother's abdomen for further care. The nurses assigned Apgars of 8 at 1 minute and 9 at 5 minutes. We then obtained cord blood. She received IV oxytocin using gentle traction on the cord and countertraction on the fundus I was able to easily deliver the placenta intact. It had a normal three-vessel cord. She had a small posterior vaginal laceration that was repaired with a single interrupted 3-0 Vicryl Rapide suture. I initially infiltrated the area with 10 cc of 1% Xylocaine with epinephrine. She has O+ blood, she is rubella immune and was group B streptococcus positive. She received IV antibiotics while in labor. Her estimated blood loss was 200 cc. Her turret lathe tender is Dr. Stauffer. Laceration:: vaginal Placental Delivery Description: Spontaneous
== END 2022-03-15 15:48 | disposition home or self-care (01) | DRG 806 ==
PROVIDERS: Admitting Provider Nurse Practitioner Obstetrics & Gynecology; PCP Family Medicine; Visit Provider Nurse Practitioner Obstetrics & Gynecology
DX: O41.03X0 Oligohydramnios, third trimester, not applicable or unspecified (principal); O71.4 Obstetric high vaginal laceration alone; Z37.0 Single live birth; Z3A.40 40 weeks gestation of pregnancy; O99.333 Smoking (tobacco) complicating pregnancy, third trimester; F17.210 Nicotine dependence, cigarettes, uncomplicated
CPT/HCPCS: 59409; 36415; 59025; 80305; 81001; 82962; 85007; 85014; 85018; 85025; 86850; 94761; C9803; G0283; J0595; J2405; U0003; U0005

== ENCOUNTER → 2022-04-17 09:46 | Outpatient (CLI) | payer BC, SELFPAY ==
[2022-04-17 10:18] LABS: Basophils % 0.4 % (0.1-2.0); Eosinophils # 0.1 K/mm3 (0.0-0.4); Eosinophils % 1.2 % (0.1-12.0); Hematocrit 43.3 % (37.0-47.0); Hemoglobin 14.5 g/dL (12.2-16.2); Mean Corpuscular HGB Conc 33.5 g/dL (31.8-35.4); Mean Corpuscular Hemoglobin 30.5 pg (27.0-31.2); Mean Corpuscular Volume 91.2 fl (81-99); Mean Platelet Volume 7.7 fl (7.4-10.4); Monocytes # 0.4 K/mm3 (0.1-1.0); Monocytes % 5.1 % (1.7-9.3); Neutrophils % 66.2 % (37.0-80.0); Platelet Count 344 K/mm3 (142-424); Red Blood Count 4.74 M/mm3 (4.20-5.40); Red Cell Distribution Width 12.5 % (11.5-17.5); White Blood Count 7.5 K/mm3 (4.8-10.8)
[2022-04-17 10:41] LABS: HCG Qualitative, Serum Negative (Negative)
[2022-04-17 10:42] LABS: Chloride 104 mmol/L (98-107); Potassium 4.2 mmoL/L (3.5-5.1); Sodium 137 mmol/L (136-145)
[2022-04-17 10:45] LABS: Anion Gap 11.2 mEq/L (5-15); Blood Urea Nitrogen 9 mg/dl (7-17); Calcium 9.6 mg/dl (8.4-10.2); Carbon Dioxide 26 mmol/L (22.0-30.0); Estimated Glomerular Filt Rate 115 ml/min (>60); GFR (African American) 139 ML/MIN (>60); Glucose 88 mg/dl (74-100)
== END ==
PROVIDERS: PCP Family Medicine; Visit Provider Nurse Practitioner Obstetrics & Gynecology
DX: Z01.818 Encounter for other preprocedural examination (principal); Z30.09 Encounter for other general counseling and advice on contraception
CPT/HCPCS: 36415; 80048; 84703; 85025

== ENCOUNTER → 2022-04-19 09:44 | Outpatient (CLI) | payer BC, SELFPAY | PROVIDERS: PCP Family Medicine; Visit Provider Nurse Practitioner Obstetrics & Gynecology | DX: Z01.818 Encounter for other preprocedural examination (principal); Z20.822 Contact with and (suspected) exposure to COVID-19; Z30.09 Encounter for other general counseling and advice on contraception | CPT/HCPCS: C9803; U0003; U0005 ==

== ENCOUNTER 2022-04-20 06:53 | Day surgery (SDC) | payer BC, SELFPAY ==
[2022-04-18 13:25] VITALS: BMI 27.2
[2022-04-20] VITALS (8 sets, daily range): BP systolic 109–125; BP diastolic 63–85; PULSE 55–75; RESP 12–18; TEMP 36.4–37; O2SAT 94–100
--- NOTE | 2022-04-20 07:39 | HMH.ANESCL ---
[facility] Anesthesia Checklist - Patient Identification Patient Identification: Arm Band - Structural Data Admitted From: Home Planned Operative Procedure/s: Laparoscopic BTL Consent for Planned Operative Procedure(s) Verified: Yes Verified Documents: Surgical Consent, History and Physical - NPO Status Verified Time NPO: 00:00 - Additional verifications Anesthesia Reactions: No Hx Blood Transfusions: No Blood Transfusion Reaction: No - Airway Assessment C-Spine Mobility Assessed: Yes (mp2) TMJ Mobility Assessed: Yes Dentition: Good Dentition - Neurological Assessment Level of Consciousness: Awake, Alert - Anesthesia Plan Anesthesia Risk discussed: Yes Anesthesia Plan: Verified ASA Class: II Anesthesia Type: General [facility] History I have reviewed the patient's past medical history: Yes Medical History: Reports:: Heart Murmur Denies:: Cancer, Diabetes Mellitus Type 1, Diabetes Mellitus Type 2, Internal Pacemaker, MRSA, Seizures *Have you ever received a pneumonia vaccine?: No *Have you received a flu vaccine this season?: No Other Medical History: Denies: Blood Transfusion Reaction Anesthesia experience/problems:: nac Other Surgeries: Yes: No Previous Surgery. No: , Pacemaker Amputation: No Fractures: No - *Social History Last grade of school completed: 11th or 12th Smoking Status: Current every day smoker Tobacco Type: cigarettes # Packs/Day (cigarettes): 1 Alcohol Intake: never Alcohol Intake Frequency:: holidays/special occasions only Substance Use Type: denies use *Occupational Status:: employed Housing: house *Travel in the last 8 weeks: None Family Hx:: No significant family history
--- NOTE | 2022-04-20 09:09 | HMH.ANESI ---
[facility] Anesthesia Record Part I Intake, IV Amount: 1,500 Estimated blood loss (mL): 10 Urine output (mL): 0 Blood Pressure: 125/80 SaO2: 96 Pulse Rate: 75 Respiratory Rate: 12 Temperature: 98.6 F Patient is:: Awake, Stable Stable to PACU at:: 09:00
--- NOTE | 2022-04-20 09:24 | P.OP_ITS ---
Date of procedure: 04/20/22 Pre-op Diagnosis:: Desire for sterilization Post-op Diagnosis:: Desire for sterilization Procedure performed:: Laparoscopic bilateral salpingectomy Surgeon:: Giovanni Correa MD PLUG DRILL OPERATOR:: Mk Brambila Anesthesia: RELL Estimated blood loss (mL): 50 Clinical Note:: She is a 31-year-old 2 para 2 who expressed desire for sterilization. The risks and benefits as well as the irreversibility of bilateral salpingectomy were discussed with the patient. Operative findings:: She had a normal-appearing anteverted uterus. The tubes and ovaries appeared normal. The appendix appeared normal. The upper abdomen appeared normal. The rest the pelvis appeared normal. Operative note:: She was taken to the operating room where general anesthesia was found be adequate. She was prepped and draped in normal sterile fashion in the semilithotomy position. A weighted speculum was placed in the vagina and the anterior lip of the cervix was grasped with a tenaculum. I then inserted a Pat uterine manipulator into the cervical os. The balloon was then insufflated. I changed gloves and injected 10 cc of 0.5% ropivacaine around her umbilicus and made a small incision within the umbilicus. I inserted a Veress needle into the abdominal cavity. The peritoneal cavity was then insufflated with carbon dioxide gas to a pressure of 20 mmHg. I then inserted a 5 millimeter trocar under direct vision. I injected through and through the pubic hairline, made a small incision here and inserted an 8 mm trocar under direct vision. I identified the inferior epigastric artery on the left side, went lateral to these and injected through and through. I then placed a 5 mm trocar here under direct vision. The pelvis and upper abdomen were then inspected and the findings were as previously dictated. I grasped the right tube at the cornua and using harmonic scalpel on coagulation mode I cut through the tube. I then grasped the distal tube and using harmonic scalpel cut along the mesosalpinx. The tube was removed through 8 mm trocar site. This was similarly performed on the patient's left side. I then injected 30 cc of 0.5% ropivacaine into the pelvis. After assuring hemostasis the gas was let out of the abdomen and hemostasis was once again assured. The abdomen was then reinsufflated. The secondary trochars were removed under direct vision. The gas was let out her abdomen. The primary trocar was then removed. The 8 mm trocar site was closed deeply with 2-0 Vicryl suture followed by subcuticular 4-0 Monocryl suture. The 5 mm trocar sites were closed with subcuticular 4-0 Monocryl. Sterile dressings were applied. The patient tolerated the procedure well and was taken to the recovery room in excellent condition. All sponge instrument and needle counts were correct. The estimated blood loss was less than 25 cc. Condition: stable Disposition: PACU Specimens:: Bilateral fallopian tubes Complications:: None
--- NOTE | 2022-04-24 08:42 | P.PN_ITS ---
[facility] Anesthesia Record Part II Discharge Time: 09:30 Destination: [facility] PACU nurse assessment reviewed?: Yes Patient Condition:: Good Anesthesia Complications:: None Swallowing reflex intact?: Yes Cyanosis?: No Blood Pressure: 119/85 Pulse Rate: 55 Temperature: 97.6 F Mental Status: Alert & Oriented Pain level:: 0 Nausea and/or vomitting:: None Intake, IV Amount: 1,000
[2022-04-24 08:43] VITALS: BP 119/85; PULSE 55; TEMP 36.4
== END 2022-04-20 10:00 | disposition home or self-care (01) ==
LOC: OR 06:54
PROVIDERS: PCP Family Medicine; Visit Provider Nurse Practitioner Obstetrics & Gynecology
PROC: (CPT 58661; principal; 2022-04-20 08:45)
DX: Z30.2 Encounter for sterilization (principal); R01.1 Cardiac murmur, unspecified; Z72.0 Tobacco use; Z88.0 Allergy status to penicillin
CPT/HCPCS: 58661; 96374; J2405; J2710

== ENCOUNTER 2023-09-23 09:04 | Emergency (ER) | payer BC, SELFPAY ==
--- NOTE | 2023-09-23 09:16 | EXP.UTC ---
Discharge Plan Disposition Patient Disposition: Home, Self-Care Condition: Good Prescriptions Prescriptions: New benzonatate [benzonatate] 100 mg capsule 100 mg PO TIDP PRN (Reason: Cough) Qty: 30 0RF methylprednisolone 4 mg Tablets,Dose Pack 4 mg PO DIRECTED Qty: 21 0RF cefdinir 300 mg capsule 300 mg PO BID Qty: 20 0RF Referrals Follow up/Referrals: Yrn Barton MD [Primary Care Provider] - See instructions Activity Restrictions/Add. Instructions Additional Instructions/Restrictions: Drink plenty of fluids. Take tylenol or ibuprofen for pain or fever. Take the medications as directed. Follow up with your regular doctor. GO TO THE ER FOR ANY WORSENING SYMPTOMS Clinical Impressions Clinical Impression: Sinusitis Instructions Patient Instructions: Sinusitis, DI for Sinusitis Discharge ED Provider: Jonatan Boo [facility] General Stated complaint: POSSIBLE SINUS INFECTION Time Seen by Provider: 09/23/23 09:16 Related Data Previous Rx's Medication Instructions Recorded benzonatate 100 mg capsule 100 mg PO TIDP PRN Cough #30 caps 09/23/23 cefdinir 300 mg capsule 300 mg PO BID #20 caps 09/23/23 methylprednisolone 4 mg tablets in 4 mg PO DIRECTED #21 tabs 09/23/23 a dose pack Allergies Allergy/AdvReac Type Severity Reaction Status Date / Time Penicillins [PENICILLINS] Allergy Unknown Verified 09/23/23 09:33 Tetanus Vaccines and Toxoid Allergy Unknown Verified 09/23/23 09:33 [TETANUS VACCINES & TOXOID] amoxicillin Allergy Verified 09/23/23 09:33 [facility] Disclaimer: The information contained in this section may have been updated after the patient was seen, as this information can be updated by other users. Social History Smoking Status: Current every day smoker tobacco type: cigarettes packs per day: 1 alcohol intake: never substance use type: denies use current occupational status: employed Travel in the last 8 weeks: None housing: house current occupation: [employer] current occupational exposures/hazards: Yes caffeine: Yes ROS Obtained: Yes All systems reviewed & no additional complaints except as documented Constitutional Constitutional: Reports poor appetite Eyes Eyes: Reports system reviewed and no additional complaints, except as documented ENT Ears, Nose, Mouth, and Throat: Reports as per HPI Cardiovascular Cardiovascular: Reports system reviewed and no additional complaints, except as documented and Denies chest pain Respiratory Respiratory: Denies shortness of breath, Denies chest congestion, Reports cough, Denies stridor and Denies wheezing Gastrointestinal Gastrointestingal: Reports system reviewed and no additional complaints, except as documented; Denies abdominal pain, diarrhea or vomiting Musculoskeletal Musculoskeletal: Reports system reviewed and no additional complaints, except as documented and Denies arthralgias Integumentary/Breasts Skin/Breast: Reports system reviewed and no additional complaints, except as documented and Denies rash Neurologic Neurologic: Denies paresthesias Allergic/Immunologic Allergic/Immunologic: Denies wheezing Physical Exam General General appearance: alert and in no apparent distress Eye Eye exam: Present normal appearance, PERRL and EOMI ENT ENT exam: Present mucous membranes moist and normal external ear exam Expanded ENT Exam External ear exam: Present normal external inspection TM/Canal exam: Bilateral TM: erythema and bulging Nose exam: Absent sinus tenderness Nasal speculum exam: Bilateral: normal Mouth exam: Present normal external inspection; Absent drooling Teeth exam: Present normal inspection Throat exam: Present tonsillar erythema and tonsillomegaly Neck Neck exam: Present normal inspection, full ROM and trachea midline; Absent tenderness, lymphadenopathy or thyromegaly Chest Chest inspection: Present lisa
[2023-09-23 09:20] VITALS: BP 134/75; PULSE 70; RESP 18; TEMP 36.7; O2SAT 100; BMI 27.4
[2023-09-23 09:48] VITALS: BP 134/75; PULSE 70; RESP 18; TEMP 36.7; O2SAT 100
== END 2023-09-23 09:48 | disposition home or self-care (01) ==
PROVIDERS: Emergency Provider Nurse Practitioner Family; PCP Family Medicine
DX: J01.90 Acute sinusitis, unspecified (principal); R05.9 Cough, unspecified; F17.210 Nicotine dependence, cigarettes, uncomplicated
CPT/HCPCS: 99212; 99214; G0463

== ENCOUNTER 2024-08-21 14:52 | Emergency (ER) | payer SELFPAY ==
[2024-08-21 15:05] VITALS: BP 97/58; PULSE 83; RESP 20; TEMP 36.4; O2SAT 99; BMI 27.9
--- NOTE | 2024-08-21 15:22 | EXP.UTC ---
Discharge Plan Disposition Patient Disposition: Home, Self-Care Condition: Good Prescriptions Prescriptions: New methylprednisolone [Medrol (Real)] 4 mg tablets,dose pack See Rx Instructions .Route .COMPLEX 6 Days Qty: 21 0RF Rx Instructions: taper pack; Referrals Follow up/Referrals: Yrn Barton MD [Primary Care Provider] - See instructions Activity Restrictions/Add. Instructions Additional Instructions/Restrictions: Go home, shower well and change clothing Over the counter Benadryl may help with itching Start oral Medrol dose pack tomorrow Avoid powdercoat until you have checked everything to see what you may be having a reaction too Follow up with your Family Doctor if symptoms return Clinical Impressions Clinical Impression: Allergic reaction Instructions Patient Instructions: Diphenhydramine, DI for General Allergic Reactions Print Language Print Language: Kiswahili Discharge ED Provider: Patricia Skinner [facility] General Stated complaint: rash on body Mode of Arrival: Ambulatory Source of Information: Patient Limitations: No Limitations Time Seen by Provider: 08/21/24 15:22 Description of Symptoms (Recalled from Triage Doc. by RN): PATIENT REPORTS SHE WAS WORKING WITH POWDER COAT AT WORK TODAY AND BROKE OUT IN HIVES HEENT Symptoms (Recalled from RN notes): No Resp Symptoms (Recalled from RN notes): No Skin Symptoms (Recalled from RN notes): Yes MS Symptoms (Recalled from RN notes): No Functional Status (Recalled from RN notes): WNL History of Present Illness Provider Complaint: Patient states that she has been spraying powdercoat for several years and today for some reason as she was spraying it she felt like her skin was hot and she broke out in hives all over her body and started itching States that the hives are a little better now but she has never had a reaction to the powdercoat before Related Data Previous Rx's ?Medication ?Instructions ?Recorded methylprednisolone 4 mg tablets in See Rx Instructions .Route 08/21/24 a dose pack (Medrol (Real)) .COMPLEX 6 days #21 tabs Allergies Allergy/AdvReac Type Severity Reaction Status Date / Time Penicillins [PENICILLINS] Allergy Unknown Verified 09/23/23 09:33 Tetanus Vaccines and Toxoid Allergy Unknown Verified 09/23/23 09:33 [TETANUS VACCINES & TOXOID] amoxicillin Allergy Verified 09/23/23 09:33 Worker's Comp Is this a Worker's Comp case?: No PFS PFSH Disclaimer: The information contained in this section may have been updated after the patient was seen, as this information can be updated by other users. Social History Smoking Status: Current every day smoker tobacco type: cigarettes packs per day: 1 alcohol intake: never substance use type: denies use current occupational status: employed Travel in the last 8 weeks: None housing: house current occupation: [employer] current occupational exposures/hazards: Yes caffeine: Yes ROS Obtained: Yes All systems reviewed & no additional complaints except as documented and Yes Systems reviewed as appropriate & no additional complaints except as documented Constitutional Constitutional: Reports system reviewed and no additional complaints, except as documented and Reports as per HPI ENT Ears, Nose, Mouth, and Throat: Reports system reviewed and no additional complaints, except as documented, Reports as per HPI and Reports other (denies feeling of throat swelling) Cardiovascular Cardiovascular: Reports system reviewed and no additional complaints, except as documented and Reports as per HPI Respiratory Respiratory: Reports system reviewed and no additional complaints, except as documented, Reports as per HPI, Denies shortness of breath, Denies chest congestion and Denies cough Gastrointestinal Gastrointestingal: Reports system reviewed and no additional complaints, except as documented and as per HPI Genitourinary Female Genitourinary: Reports system reviewed and no additional complaints, except as documented and Reports as per HPI Musculoskeletal Musculoskeletal: Reports system reviewed and no additional complaints, except as documented and Reports as per HPI Integumentary/Breasts Skin/Breast: Reports system reviewed and no additional complaints, except as documented, Reports as per HPI, Reports pruritus and Reports rash Physical Exam General General appearance: alert and in no apparent distress ENT ENT exam: Present mucous membranes moist Respiratory Respiratory exam: Present normal lung sounds bilaterally; Absent respiratory distress or wheezes Cardiovascular Cardiovascular exam: Present regular rate, normal rhythm and normal heart sounds Abdominal Exam Abdominal exam: Present soft and normal bowel sounds; Absent distention or tenderness Neurological Exam Neurological exam: Present alert, oriented X3 and normal gait Skin Skin exam: Present rash (urticaria like rash noted on arms, chest, back and legs) Medical Decision Making Medical Records Screening: Per USPSTF and CDC recommendations, given the prevalence of disease in our region, it is our hospital?s policy to screen for HIV and viral Hepatitis for all patients aged 18 and over and those with ongoing risk factors. Nino Inquiry Pt receiving controlled substance: No Nino was queried for this patient: No Vital Signs: 08/21/24 15:05 Temperature 97.6 F Temperature Source Oral Pulse Rate [Left Brachial] 83 Respiratory Rate 20 Blood Pressure [Left Arm] 97/58 L Blood Pressure Mean [Left Arm] 71 Blood Pressure Source [Left Arm] Automatic Cuff Blood Pressure Position [Left Arm] Sitting 02 Sat by Pulse Oximetry 99 Oxygen Delivery Method Room Air Medical Decision Narrative: Patient supervisior with her and had Looked at the SDS and advised that she is clear to remove powder with soap and water and patient washed off with soap and water Hives was starting to improve upon arrival Urticia rash is much improved and patient states that she is no longer itching and the rash is almost gone, will dc home with coworker
[2024-08-21] MEDS: METHYLPREDNISOLONE SOD SUCC 125MG VIAL 125 MG IM (15:35)
[2024-08-21] MEDS: LORATADINE 10MG TABLET 10 MG PO (15:35)
[2024-08-21] MEDS: diphenhydrAMINE 50MG/ML VIAL 25 MG IM (15:35)
[2024-08-21] MEDS: FAMOTIDINE 20MG TABLET 20 MG PO (15:35)
[2024-08-21 16:01] VITALS: BP 97/58; PULSE 83; RESP 20; TEMP 36.4; O2SAT 99
== END 2024-08-21 16:05 | disposition home or self-care (01) ==
PROVIDERS: Emergency Provider Nurse Practitioner; PCP Family Medicine
DX: T78.40XA Allergy, unspecified, initial encounter (principal)
CPT/HCPCS: 90471; 90472; 90715; 96372; 99213; G0381; J1200; J2919

== ENCOUNTER 2025-08-10 15:00 | Outpatient (CLI) | payer OTHER, SELFPAY ==
--- OUTSIDE RECORDS SUMMARY | 2025-08-11 01:40 | XMS_ITS | Clinical Summary ---
[facility] Address [address] [place] [address] Care Team Providers Care General Lot Attendant Name Role Phone Provider, No Known Primary Care Provider Unavail able Allergies Active Allergy Reactions Criticality Noted Date Comments Amoxicillin Hives,Rash Medium 12/23/2021 Penicillins Hives,Rash Medium 12/23/2021 Tetanus Toxoid-Containing Vaccines Hives,Rash Medium 0 12/23/2021 Medications Vit-Fe Fumarate-FA ( PO) Take 1 tablet by mouth Daily. Active Ferrous Sulfate (IRON PO) Take 1 tablet by mouth Daily. Active Active Problems Problem Noted Date Diagnosed Date 28 weeks gestation of 12/23/2021 Family history of congenital heart defect 2021 Social History Tobacco Use Types Packs/Day Years Used Date Smoking Tobacco: Former Smokeless Tobacco: Never Alcohol Use Standard Drinks/Week Comments Not Currently 0 (1 standard drink = 0.6 oz pur e alcohol) socially when not Abuse Screen Answer Date Recorded Unsafe at Home or Work/School Not on file Feels Threatened by Someone? Not on file Does Anyone Keep You from Co ntacting Others or Doint Things Outside the Home? Not on file 08/17/2023 Physical Sign of Abuse Present Not on file 1 Housing Stability Answer Date Recorded Current Living Arrangements Not on file 08/05 Potentially Unsafe Housing Conditions Not on christiano e 08/17/2023 Family and Community Support Answer Jared e Recorded Help with Day-to-Day Activities Not on file 08/17/2023 Lonely or Isolated Not on file 08/17/2023 Employment Answer Date Recorded Do you want help finding or keeping work or a janette b? Not on file 08/17/2023 Disabilities Answer Date Recorded Concentrating, Remembering, or Making Decisions Difficulty Not on file 08/17/2023 Doing Errands Independently Difficulty Not on fi le 08/17/2023 Education Answer Date Recorded Help with school or training? Not on file Preferred Language Not on file 08/17/2023 Comments No Sex and Gender Information Value Date Recorded Sex Assigned at Not on file Legal Sex Female 10:09 AM EST Gender Identity Not on file Sexual Orientation Not on file Last Filed Vital Signs Vital Sign Reading Time Taken Comments Blood Pressure 116/64 12/23/2021 10:09 AM EST Pulse - - Temperature - - Respiratory Rate - - Oxygen Saturation - - Inhaled Oxygen Concentration - - Weight 84.4 kg (186 lb) 12/23/2021 10:09 AM EST Height 165.1 cm (5' 5 ) 12/23/2021 10:14 AM EST Body Mass Index 30.95 12/23/2021 10:09 AM EST Plan of Treatment Health Maintenance Due Date Last Done Comments Annual Gynecologic Pelvic an d Breast Exam 1988 ANNUAL PHYSICAL 12/23/2021 HEPATITIS C SCREENING 12/23/2021 INFLUENZA VACCINE 06/05/2025 Pneumococcal Vaccine 0-49 Aged Out No longer eligible based on patient's age to complete this topic Insurance [facility] PPO Care Teams General Lot Attendant Relationship Specialty Start Date End Date Provider, [place] [address] PCP - General 2/3/22
--- OUTSIDE RECORDS SUMMARY | 2025-08-11 01:41 | XMS_ITS | Patient Health Record ---
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 Phone Maximo Barton Primary Care Provider Allergies Allergen (clinical drug ingredient) Drug/Non Drug Allergy documented on EMR Reaction Allergy Type Onset Date Status Substance with penicillin structure and antibacterial mechanism of action (substance) Penicillins Unknown Drug Allergy Active Tetanus Toxoids Unknown Drug Allergy A ctive Reason For Referral No Information Medications Medication SIG (Take, Route, Frequency, Duration) Notes Start Date End Date Status RANITIDINE 300 MG 1 CAP(S) ORALLY ONCE A DAY (AT BEDTIME) *Please review for potential replacement for e-prescription and drug interaction check* 06/25/2018 Active Reglan 10 MG 1 tab(s) orally bid 06/25/2018 Active Immunizations Vaccine Route Administration Date Status Comme nts tuberculin (ppd) ID Intradermal 10/05/2006 Administered Problems Problem Type SNOMED Code ICD Code Onset Dates Problem Status W/U Status Risk Notes Problem Gastroesophageal reflux disease with esophagitis (disorder) (806318365) GERD with esophagitis (K21.0) Active confirmed Plan Of Treatment No Information Insurance Providers Payer Name Payer Address Payer Phone Subscriber Number Group Number Insured Name Patient Relationship to Insured Coverage Start Date Coverage End Date [facility] [address] [address] [place] [address] [id number] Alexandra Olvera Self - patient is the insured Medications Administered Medication Instructions Date of Administration Dosage Notes depo provera 08/25/2005 0.5 mL depo provera 11/22/2005 0.5 mL depo provera 02/20/2006 depo provera 05/22/2006 depo provera 08/22/2006 depo provera 11/22/2006 depo provera 02/20/2007 depo provera 05/22/2007 depo provera 08/22/2007 depo provera 11/22/2007 150 mg Medical (General) History Surgical History Surgery Date(Month/Year) none Hospitalization History Reason Date(Month/Year) none child [facility] 05/21/16
--- OUTSIDE RECORDS SUMMARY | 2025-08-11 01:41 | XMS_ITS | Clinical Summary ---
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 Phone Unavailable Primary Care Provider Unavailabl e Social History Tobacco Use Types Packs/Day Years Used Date Smoking Tobacco: Never Assessed Comments Unknown Sex and Gender Information Value Date Recorded Sex Assigned at Not on file Legal Sex Female 8:53 AM EDT Gender Identity Not on file Sexual Orientation Not on file Plan of Treatment Health Maintenance Due Date Last Done Comments Annual Wellness Exam 1991 DTaP/TDaP/Td (1 - Tdap) 2007 Hepatitis B Vaccine (1 of 3 - 19+ 3-dose series) 2007 COVID-19 Vaccine (2023-2 5 season) 2025 Influenza Vaccine (#1) 2025 Meningococcal B Vaccine Aged Out No l onger eligible based on patient's age to complete this topic Pneumococcal Vaccine 0-49 Aged Out No longer eligible based on patient's age to complete this topic
== END 2025-08-10 23:59 | disposition home or self-care (01) ==
LOC: LAB.DROPOF 08-11 01:39
PROVIDERS: PCP Nurse Practitioner Obstetrics & Gynecology; Visit Provider Nurse Practitioner Obstetrics & Gynecology
DX: N89.8 Other specified noninflammatory disorders of vagina (principal)
CPT/HCPCS: 87491; 87529; 87591; 87661; 87798; 87801